=== PATIENT | female | born 1935 | race Caucasian/White ===

== ENCOUNTER 2017-03-09 06:23 | Day surgery (SDC) | payer OTHER ==
[2017-03-09] VITALS (9 sets, daily range): BP systolic 93–151; BP diastolic 44–79; PULSE 56–81; RESP 18–20; TEMP 98–98.3; O2SAT 93–97
[~2017-03-09] VITALS: Ht 167.6 cm; Wt 64.5 kg
[~2017-03-09 06:23] MED LIST: BACT800T5 PO; CLIN1CAP6 PO; ENAL2.5 PO; GABA100C4 PO; LEVO50TA4 PO; METO25CR PO; PRAV80 PO
[2017-03-09] MEDS ORDERED: METO-309 PO (06:41)
[2017-03-09] MEDS ORDERED: D 50CAP2 PO (06:41)
[2017-03-09] MEDS ORDERED: ENAL20TA PO (06:41)
[2017-03-09] MEDS ORDERED: LEVO25TA4 PO (06:41)
[2017-03-09] MEDS ORDERED: SODIUM CHLOR 0.9% 1000 ML INJ 1,000 ML IV SCH (07:15)
[2017-03-09] MEDS ORDERED: MIDAZOLAM HCL 2 MG/2 ML VIAL ONE (07:33)
[2017-03-09] MEDS ORDERED: LIDOCAINE HCL 1% 20 ML VIAL ONE (07:48)
--- NOTE | 2017-03-09 08:29 | PD.RAD ---
Post CT Procedure Prog Note Pre Procedure Diagnosis: (1) Abnormal LFTs Post Procedure Diagnosis: (1) Abnormal LFTs Procedure Date: Mar 09, 2017 Supervising Radiologist: Lavell Duarte JR Anesthesia: Conscious Sedation Plan of Activity Patient to Unit: [facility] Patient Condition: Good See PACS Report for procedural detail/treatment Biopsy Imaging Guidance: CT Biopsy Procedure: Liver Specimen: Core Biopsy Findings: Good core sample for function obtained. Trace amount of hemorrhage on post images. Pt stable. Plan 4 hr observation in [facility]. Jr. Duarte Thomas Justin MD Mar 09, 2017 08:29
--- NOTE | 2017-03-09 09:37 | RADRPT ---
EXAM DATE/TIME: 03/09/2017 08:15 [place] COMPARISON: No previous studies available for comparison. INDICATIONS : Elevated liver functions SEDATION TIME: 30 minutes BIOPSY SITE: Right Liver MEDICATION(S): 1.) 1.5 mg midazolam (Versed) IV 2.) 73 mcg fentanyl (Sublimaze) IV DEVICE(S): 1.) 18 gauge BioPince needle MEDICAL HISTORY : Renal cyst, hypothyroidism SURGICAL HISTORY : Appendectomy. Cholecystectomy. Left breastm nose ENCOUNTER: Initial ACUITY: 1 day PAIN SCORE: 0/10 LOCATION: Right liver A total of one core specimen(s) were obtained and sent to the laboratory for pathologic evaluation. PROCEDURE: 1. CT guided liver biopsy. 2. Conscious sedation with continuous EKG and oximetry monitoring. 3. EKG and oximetry remained stable throughout the procedure. Prior to the procedure informed consent was obtained. Any appropriate prior imaging studies were rev iewed. Using automated exposure control and adjustment of the mA and/or kV according to patient size, radiat ion dose was kept as low as reasonably achievable to obtain optimal diagnostic quality images. DICOM format image data is available electronically for review and comparison. The site was prepped in a sterile fashion. Full sterile technique was used, including cap, mask, mark rile gloves and gown and a large sterile sheet. Hand hygiene and 2% chlorhexidine and/or betadine/al cohol prep was utilized per protocol for cutaneous antisepsis. The skin and subcutaneous tissues wer e infiltrated with local anesthetic solution. With CT guidance the previously identified target was localized. Biopsy was performed using the presc ribed needle as above. Adequate hemostasis was obtained with compression at the puncture site. Follow-up CT scan reveals minimal hemorrhage. The patient tolerated the procedure well and there were no complications. The patient was returned to the Radiology Outpatient Unit in stable condition. CONCLUSION: Uncomplicated CT guided biopsy. Lavell Duarte Jr., MD on March 09, 2017 at 9:34 Board Certified Radiologist. This report was verified electronically.
== END 2017-03-09 12:40 | disposition home or self-care (01) ==
LOC: HRAD 06:23 → HRIP 06:27 → HRAD 12:40
PROVIDERS: ATTEND Internal Medicine Gastroenterology
DX: R79.89 Other specified abnormal findings of blood chemistry (principal); E03.9 Hypothyroidism, unspecified; N28.1 Cyst of kidney, acquired; E78.00 Pure hypercholesterolemia, unspecified; K57.90 Diverticulosis of intestine, part unspecified, without perforation or abscess without bleeding; I10 Essential (primary) hypertension
CPT/HCPCS: 47000; 77012; 88307; 88313; J2250; J3010; J7030